=== PATIENT | female | born 1975 | race Caucasian/White ===

== ENCOUNTER 2018-04-10 11:45 | Outpatient (CLI) | payer OTHER ==
--- NOTE | 2018-04-10 14:23 | MMO ---
BILATERAL MAMMOGRAMS: HISTORY: Screening mammography. COMPARISON: None available. Baseline study. FINDINGS: Heterogeneously dense fibroglandular tissue. Focal asymmetry deep within the superior aspect of the left breast, on the MLO view. No dominant mass or suspicious calcifications. The study was evaluate d with the assistance of computer aided detection. IMPRESSION: BI-RADS Category 2-Benign findings. Suggest routine followup. POS: MILLIE
== END 2018-04-10 11:46 | disposition home or self-care (01) ==
LOC: SCSMAMMO 11:45
PROVIDERS: ATTEND Nurse Practitioner Adult Health
DX: Z12.31 Encounter for screening mammogram for malignant neoplasm of breast (principal)
CPT/HCPCS: 77067

== ENCOUNTER 2018-04-15 15:21 | Outpatient (CLI) | payer OTHER | END 2018-04-15 15:22 | disposition home or self-care (01) | LOC: CTENTCT 15:21 | PROVIDERS: ATTEND Otolaryngology Plastic Surgery within the Head & Neck | DX: J32.9 Chronic sinusitis, unspecified (principal) | CPT/HCPCS: 70486 ==

== ENCOUNTER 2018-05-01 07:15 | Day surgery (SDC) | payer OTHER ==
[2018-04-30 16:37] VITALS: BMI 26.6
[2018-05-01] MEDS ORDERED: Oxymetazoline HCl 0.05% ( 15 ML ) ONE ×2 (08:44→09:09)
[2018-05-01] MEDS ORDERED: Lidocaine 1% w/Epinephrine 1:100K 20 ML VIAL ONE (09:09)
[2018-05-01] MEDS ORDERED: Fentanyl 100 MCG/2 ML VIAL ONE ×2 (09:28→10:40)
[2018-05-01] MEDS ORDERED: Midazolam HCl 2 mg/2 ml Vial ONE (09:28)
[2018-05-01] MEDS ORDERED: PROPOFOL 200 MG/20 ML VIAL ONE (13:11)
[2018-05-01] MEDS ORDERED: Lidocaine 1% PF 5 ML VIAL ONE (13:11)
[2018-05-01] MEDS ORDERED: Ondansetron PF 4 MG/2 ML Vial ONE (13:11)
[2018-05-01] MEDS ORDERED: ePHEDrine 50 MG/ML VIAL ONE (13:11)
[2018-05-01] MEDS ORDERED: Dexamethasone 20 MG/5 ML VIAL ONE (13:11)
--- NOTE | 2018-05-01 23:57 | OP ---
DATE OF PROCEDURE: 05/01/2018 PREOPERATIVE DIAGNOSES: 1. Chronic rhinosinusitis. 2. Nasal polyposis. 3. Nasal obstruction. 4. Bilateral inferior turbinate hypertrophy. POSTOPERATIVE DIAGNOSES: 1. Chronic rhinosinusitis. 2. Nasal polyposis. 3. Nasal obstruction. 4. Bilateral inferior turbinate hypertrophy. PROCEDURES PERFORMED: 1. Bilateral endoscopic sinus surgery, total ethmoidectomies with removal of tissue. 2. Bilateral endoscopic sinus surgery, maxillary antrostomies with removal of tissue. 3. Bilateral endoscopic sinus surgery, frontal sinusotomies. 4. Bilateral inferior turbinate submucosal resection. ESTIMATED BLOOD LOSS: 50 mL. COMPLICATIONS: None. ANESTHESIA: GETA. DESCRIPTION OF PROCEDURE: The patient was taken to the operating room and placed supine on the table. General endotracheal anesthesia was obtained by the anesthesia staff. Tube was secured in the left lower lip. The patient was then placed in the beach chair position and was prepped and draped in standard surgical procedure. Following this, 0-degree endoscope was advanced in the nasal cavity. 1% lidocaine with 1:100,000 epinephrine was injected into the inferior turbinates, middle turbinates, and lateral nasal wall. The nasal polyps were visualized and injected as well. Following this, the [place] elevator was used to medialize the middle turbinates bilaterally and expose the uncinate process. Following this, a ball-ended probe was used to anteriorly fractured the uncinate process bilaterally. Following this, the uncinate process was removed bilaterally using 0 degree microdebrider and up-biting Blakesley forceps. Nasal polyps were encountered and removed during this part. Following this, the curved microdebrider were used to identify the natural maxillary sinus ostia and was used to widen the natural maxillary sinus ostia bilaterally. Nasal polyps were encountered bilaterally and were removed using the microdebrider. Following this, ethmoidal bulla was identified bilaterally and was punctured on its medial and inferior aspect with the 0-degree microdebrider. Using 0-degree microdebrider, the ethmoidal bulla was removed bilaterally. Following this, the grand lamella was identified and was punctured into the posterior ethmoidal cells using the microdebrider. Working from posterior to anterior, the ethmoidal cells were opened in a mucosal sparing technique. Nasal polyps were encountered throughout the anterior ethmoidal sinuses bilaterally. Following this, a 45-degree endoscope along with the curved microdebrider were used to further open the anterior ethmoidal cells and identified the frontal sinus ostia bilaterally. The frontal sinus ostium was widened bilaterally using the curved microdebrider. Following this, the inferior turbinates were identified and punctured on the anterior and inferior aspect of the submucosal microdebrider and submucosal resection was performed of the anterior and inferior portions of the inferior turbinates bilaterally. Following this, the nasal cavity was irrigated. Mirapex was placed within the middle meatus. The patient tolerated the procedure well. Job ID: [id number]
== END 2018-05-01 12:41 | disposition home or self-care (01) ==
LOC: SDC 07:15
PROVIDERS: ATTEND Otolaryngology Plastic Surgery within the Head & Neck
PROC: 099S8ZZ Drainage of Right Frontal Sinus, Via Natural or Artificial Opening Endoscopic (ICD-10-PCS; principal; 2018-05-01)
PROC: 09BR8ZZ Excision of Left Maxillary Sinus, Via Natural or Artificial Opening Endoscopic (ICD-10-PCS; principal; 2018-05-01)
PROC: 09TL7ZZ Resection of Nasal Turbinate, Via Natural or Artificial Opening (ICD-10-PCS; principal; 2018-05-01)
PROC: 09TU8ZZ Resection of Right Ethmoid Sinus, Via Natural or Artificial Opening Endoscopic (ICD-10-PCS; principal; 2018-05-01)
PROC: 099T8ZZ Drainage of Left Frontal Sinus, Via Natural or Artificial Opening Endoscopic (ICD-10-PCS; principal; 2018-05-01)
PROC: 09BQ8ZZ Excision of Right Maxillary Sinus, Via Natural or Artificial Opening Endoscopic (ICD-10-PCS; principal; 2018-05-01)
PROC: 09TV8ZZ Resection of Left Ethmoid Sinus, Via Natural or Artificial Opening Endoscopic (ICD-10-PCS; principal; 2018-05-01)
DX: J32.9 Chronic sinusitis, unspecified (principal); J33.9 Nasal polyp, unspecified; J34.89 Other specified disorders of nose and nasal sinuses; J34.3 Hypertrophy of nasal turbinates; J34.2 Deviated nasal septum; J30.9 Allergic rhinitis, unspecified; M32.9 Systemic lupus erythematosus, unspecified; F99 Mental disorder, not otherwise specified; Z79.899 Other long term (current) drug therapy; Z88.1 Allergy status to other antibiotic agents
CPT/HCPCS: 85014; 88304; J1100; J2001; J2250; J2405; J2704; J3010; J3490